=== PATIENT | female | born 2000 | race Caucasian/White ===

== ENCOUNTER 2020-08-31 20:51 | Emergency (ER) | payer OTHER ==
[~2020-08-31] VITALS: Ht 162.6 cm; Wt 54.2 kg
[2020-08-31] MEDS ORDERED: MULTTAB20 PO (21:09)
[2020-08-31 21:37] LABS: BASO # 0.1 10^3/uL (0.0-0.2); BASO % 0.7 % (0.0-1.0); EOS # 0.1 10^3/uL (0.0-0.5); EOS % 1.7 % (0.0-3.0); HEMATOCRIT 37.2 % (36.0-47.0); HEMOGLOBIN 12.6 g/dl (12.0-15.5); LYMPH # 2.5 10^3/uL (1.5-5.0); LYMPH % 35.7 % (24.0-44.0); MEAN CORPUSCULAR HEMOGLOBIN 29.4 pg (27.0-33.0); MEAN CORPUSCULAR HGB CONC 33.9 g/dl (32.0-36.5); MEAN CORPUSCULAR VOLUME 86.7 fl (80.0-96.0); MONO # 0.6 10^3/uL (0.0-0.8); MONO % 9.3 % (2.0-8.0); NEUTROPHILS # 3.6 10^3/uL (1.5-8.5); NEUTROPHILS % 52.3 % (36.0-66.0); PLATELET COUNT, AUTOMATED 145 10^3/uL (150-450); RED BLOOD COUNT 4.29 10^6/uL (4.00-5.40); WHITE BLOOD COUNT 6.9 10^3/uL (4.0-10.0)
[2020-08-31 22:24] LABS: BLOOD UREA NITROGEN 7 MG/DL (7-18); CALCIUM LEVEL 8.7 MG/DL (8.5-10.1); CARBON DIOXIDE LEVEL 28 MEQ/L (21-32); CHLORIDE LEVEL 106 MEQ/L (98-107); CREATININE FOR GFR 0.54 MG/DL (0.55-1.30); GLUCOSE, FASTING 84 MG/DL (70-100); HCG, SERUM QUANTITATIVE 87364 MIU/ML; POTASSIUM SERUM 4.1 MEQ/L (3.5-5.1); SODIUM LEVEL 140 MEQ/L (136-145)
--- NOTE | 2020-09-01 01:37 | REPVR ---
PROCEDURE INFORMATION: Exam: US First Trimester, Transabdominal and US Duplex Artery and Vein, Ovaries, Complete Exam date and time: 09/01/2020 12:33 AM Age: 20 years old Clinical indication: Lmp or gestational age (in weeks): 07/20/20; Antepartum complications; Bleeding; ; Additional info: Vaginal bleeding TECHNIQUE: Imaging protocol: Real-time transabdominal obstetrical ultrasound of the maternal pelvis and a first trimester , less than 14 weeks 0 days, with image documentation. Real-time duplex ultrasound scan of the arterial and venous flow of the ovaries with B-mode, color Doppler flow and spectral waveform analysis, complete duplex. COMPARISON: No relevant prior studies available. FINDINGS: Gestation: Single viable intrauterine gestation. A yolk sac is present. Embryonic/ heart rate: heart rate is 142 bpm. Extra-embryonic membranes/Placenta: Unremarkable. No subchorionic bleed. Amniotic fluid: Amniotic fluid is normal for gestational age. BIOMETRY: Gestational age (AUA): Sonographically estimated gestational age is 7 weeks 3 days. Estimated due date (AUA): Estimated date of delivery is 04/17/2021. [place]-Rump length: [place]-rump length of the pole is 1.2 cm. MATERNAL: Uterus: Unremarkable. Cervix: Unremarkable. Right adnexa: Right ovary measures 2 x 2.8 x 1.3 cm. Normal waveforms. Left adnexa: Left ovary measures 3 x 2 x 2.1 cm. Normal waveforms. Intraperitoneal space: No intraperitoneal free fluid. IMPRESSION: Single viable intrauterine gestation 7 weeks 3 days. Electronically signed by: Sridhar Balderas On 09/01/2020 01:37:14 AM
[2020-09-01 01:52] VITALS: BP 121/67
[2020-09-01 02:30] LABS: GC DNA AMPLIFICATION NEGATIVE (NEGATIVE)
== END 2020-09-01 01:54 | disposition home or self-care (01) ==
LOC: M ED 20:51
DX: O34.61 Maternal care for abnormality of vagina, first trimester (principal); Z3A.01 Less than 8 weeks gestation of pregnancy

== ENCOUNTER 2020-10-20 10:22 | Emergency (ER) | payer OTHER ==
[~2020-10-20] VITALS: Ht 162.6 cm; Wt 53.7 kg
[~2020-10-20 10:22] MED LIST: MULTTAB20 PO
[2020-10-20] MEDS ORDERED: NS 1,000 ML IV ONE (11:15)
[2020-10-20] MEDS ORDERED: ONDANSETRON 4MG/2ML VIAL IV ONE (11:15)
[2020-10-20 11:52] LABS: BASO % 0.3 % (0.0-1.0); EOS % 0.1 % (0.0-3.0); HEMATOCRIT 37.3 % (36.0-47.0); HEMOGLOBIN 13.2 g/dl (12.0-15.5); LYMPH # 1.4 10^3/uL (1.5-5.0); LYMPH % 17.8 % (24.0-44.0); MEAN CORPUSCULAR HEMOGLOBIN 30.3 pg (27.0-33.0); MEAN CORPUSCULAR HGB CONC 35.4 g/dl (32.0-36.5); MEAN CORPUSCULAR VOLUME 85.6 fl (80.0-96.0); MONO # 0.4 10^3/uL (0.0-0.8); NEUTROPHILS # 5.9 10^3/uL (1.5-8.5); NEUTROPHILS % 76.3 % (36.0-66.0); PLATELET COUNT, AUTOMATED 161 10^3/uL (150-450); RED BLOOD COUNT 4.36 10^6/uL (4.00-5.40); WHITE BLOOD COUNT 7.8 10^3/uL (4.0-10.0)
[2020-10-20] MEDS ORDERED: FAMO20TA PO (11:55)
[2020-10-20] MEDS ORDERED: UNIS25TA3 PO (11:55)
[2020-10-20 12:34] LABS: ALBUMIN 3.7 GM/DL (3.2-5.2); BILIRUBIN,DIRECT 0.1 MG/DL (0.0-0.2); BILIRUBIN,TOTAL 0.4 MG/DL (0.2-1.0); TOTAL PROTEIN 7.1 GM/DL (6.4-8.2)
[2020-10-20 13:48] LABS: APPEARANCE, URINE CLEAR (CLEAR); BACTERIA, URINE AUTO 1+ (NEGATIVE); BILIRUBIN, URINE AUTO NEGATIVE (NEGATIVE); BLOOD, URINE BLOOD NEGATIVE (NEGATIVE); COLOR, URINE YELLOW (YELLOW); GLUCOSE, URINE (UA) AUTO NEGATIVE (NEGATIVE); KETONE, URINE AUTO 2+ mg/dL (NEGATIVE); LEUKOCYTE ESTERASE, URINE AUTO NEGATIVE (NEGATIVE); NITRITE, URINE AUTO NEGATIVE (NEGATIVE); PROTEIN, URINE AUTO NEGATIVE (NEGATIVE); RBC, URINE AUTO 1 /HPF (0-3); SQUAMOUS EPITHELIAL CELL UR AU 3 /HPF (0-6); UROBILINOGEN, URINE AUTO 0.2 mg/dL (0.0-2.0); WBC, URINE AUTO 0 /HPF (0-3)
[2020-10-20] MEDS ORDERED: ONDA4TAB6 PO (14:04)
[2020-10-20 14:30] VITALS: BP 113/60
== END 2020-10-20 14:32 | disposition home or self-care (01) ==
LOC: M ED 10:22
DX: O26.892 Other specified pregnancy related conditions, second trimester (principal); Z3A.14 14 weeks gestation of pregnancy
CPT/HCPCS: 76705; 80047; 80076; 81001; 83690; 85025; 87086; 96361; 96374; 99284; J2405

== ENCOUNTER 2021-01-30 16:35 | Outpatient (CLI) | payer OTHER ==
[~2021-01-30] VITALS: Ht 162.6 cm; Wt 65.0 kg
[~2021-01-30 16:35] MED LIST changes: +FAMO20TA PO; +ONDA4TAB6 PO; +UNIS25TA3 PO
[2021-01-30 16:48] VITALS: BP 139/90
[2021-01-30] MEDS ORDERED: TUMS750C5 PO (17:01)
[2021-01-30 17:03] VITALS: BP 138/92
[2021-01-30 17:04] VITALS: BP 125/69
[2021-01-30] MEDS ORDERED: HOME MED LIST COMPLETE! XX SCH (17:05)
== END 2021-01-30 17:35 | disposition home or self-care (01) ==
LOC: M LDO 16:35
PROVIDERS: ATTEND Obstetrics & Gynecology
DX: O47.02 False labor before 37 completed weeks of gestation, second trimester (principal); Z3A.29 29 weeks gestation of pregnancy
CPT/HCPCS: 59025; 76815; 82731; G0378; G0463

== ENCOUNTER 2021-04-17 08:09 | Outpatient (CLI) | payer OTHER ==
[~2021-04-17] VITALS: Ht 162.6 cm; Wt 73.4 kg
[~2021-04-17 08:09] MED LIST changes: +TUMS750C5 PO
[2021-04-17 08:30] VITALS: BP 133/81
== END 2021-04-17 09:48 | disposition home or self-care (01) ==
LOC: M LDO 08:09
PROVIDERS: ATTEND Obstetrics & Gynecology
DX: O48.0 Post-term pregnancy (principal); Z3A.40 40 weeks gestation of pregnancy; O98.513 Other viral diseases complicating pregnancy, third trimester; B07.0 Plantar wart; O99.113 Other diseases of the blood and blood-forming organs and certain disorders involving the immune mechanism complicating pregnancy, third trimester; D69.6 Thrombocytopenia, unspecified
CPT/HCPCS: 59025; G0378; G0463

== ENCOUNTER 2021-04-23 12:22 | Inpatient (IN) | payer OTHER ==
[~2021-04-23] VITALS: Ht 160 cm; Wt 73.5 kg
[2021-04-23] VITALS (9 sets, daily range): BP systolic 118–157; BP diastolic 69–89
[2021-04-23] MEDS ORDERED: HOME MED LIST COMPLETE! XX SCH (12:40)
[2021-04-23 13:24] LABS: HEMATOCRIT 37.7 % (36.0-47.0); HEMOGLOBIN 13.1 g/dl (12.0-15.5); MEAN CORPUSCULAR HEMOGLOBIN 30.7 pg (27.0-33.0); MEAN CORPUSCULAR HGB CONC 34.7 g/dl (32.0-36.5); MEAN CORPUSCULAR VOLUME 88.3 fl (80.0-96.0); PLATELET COUNT, AUTOMATED 103 10^3/uL (150-450); RED BLOOD COUNT 4.27 10^6/uL (4.00-5.40); WHITE BLOOD COUNT 8.3 10^3/uL (4.0-10.0)
[2021-04-23 14:37] LABS: ALT/SGPT 19 U/L (12-78); BILIRUBIN,TOTAL 0.1 MG/DL (0.2-1.0); CREATININE FOR GFR 0.44 MG/DL (0.55-1.30); LDH LACTATE DEHYDROGENASE 206 U/L (84-246); URIC ACID 3.4 MG/DL (2.6-6.0)
[2021-04-23] MEDS ORDERED: LACTATED RINGER'S 1000 ML IV STA (14:46)
[2021-04-23] MEDS ORDERED: LIDOCAINE 1% MDV 20ML VIAL INFIL PRN (14:50)
[2021-04-23] MEDS ORDERED: CARBOPROST TROMETHAMINE 250 MCG/ML AMP IM PRN (14:50)
[2021-04-23] MEDS ORDERED: OXYTOCIN DRIP 30 UNITS in IV 1 EA IV PRN ×6 (14:50)
[2021-04-23] MEDS ORDERED: METHYLERGONOVINE MALEATE 0.2 MG/ML VIAL (J2210) IM PRN (14:50)
[2021-04-23] MEDS ORDERED: LR 1,000 ML IV SCH (14:50)
[2021-04-23] MEDS ORDERED: OXYTOCIN INJ 10 UNITS/ML VIAL (J2590) IV PRN (14:50)
[2021-04-23] MEDS ORDERED: OXYTOCIN INJ 10 UNITS/ML VIAL (J2590) IM PRN (14:50)
[2021-04-23] MEDS ORDERED: OXYTOCIN DRIP 30 UNITS in IV 1 EA IV SCH (14:50)
[2021-04-23] MEDS: miSOPROStol 50MCG 1/2 TABLET PO PRN ×2 (15:06→19:08)
[2021-04-23] MEDS: LR 1,000 ML IV SCH (23:45)
[2021-04-24] VITALS (49 sets, daily range): BP systolic 116–159; BP diastolic 66–98
[2021-04-24] MEDS: miSOPROStol 50MCG 1/2 TABLET PO PRN ×3 (00:08→08:19)
[2021-04-24] MEDS ORDERED: ONDANSETRON 4MG/2ML VIAL IV PRN ×2 (05:15→13:20)
[2021-04-24] MEDS ORDERED: ONDANSETRON 4MG/2ML VIAL IV SCH (05:30)
[2021-04-24] MEDS ORDERED: PROMETHAZINE INJ 25 MG/ML VIAL (J2550) IV PRN (08:15)
[2021-04-24] MEDS ORDERED: BUTORPHANOL 2 MG/ML INJ (J0595) IV PRN (08:15)
[2021-04-24] MEDS: LR 1,000 ML IV SCH (11:33)
[2021-04-24] MEDS ORDERED: OXYTOCIN DRIP 30 UNITS in IV 1 EA IV SCH ×2 (12:55→20:30)
[2021-04-24] MEDS ORDERED: LR 1,000 ML IV SCH (12:55)
[2021-04-24] MEDS ORDERED: FENTANYL 2MCG/ML ROPIVACAINE 0.2% IN 0.9% NACL 100ML IVBAG As Ordered ONE (13:00)
[2021-04-24] MEDS ORDERED: LACTATED RINGER'S 1000 ML IV PRN (13:20)
[2021-04-24] MEDS ORDERED: diphenhydrAMINE 50MG/ML VIAL (J1200) IV PRN (13:20)
[2021-04-24] MEDS ORDERED: EPIDURAL/PCA KEYS XX PRN (13:20)
[2021-04-24] MEDS ORDERED: EPIDURAL COMMENT XX SCH (13:20)
[2021-04-24] MEDS ORDERED: NALOXONE INJ 0.4MG/1ML VIAL (J2310 PER 1MG) IV PRN (13:20)
[2021-04-24] MEDS ORDERED: REFRIGERATOR IV KEYS XX PRN (13:20)
[2021-04-24] MEDS ORDERED: ePHEDrine SULFATE 25 MG/5 ML(5MG/ML) SYRINGE IV PRN (13:20)
[2021-04-24] MEDS: FENTANYL/ROPIVACAINE/NACL BAG 100 ML EPIDURAL SCH ×2 (13:46→23:20)
[2021-04-24 20:16] LABS: CORD GAS ABE A -4.1; CORD GAS ABE V -2.5; CORD GAS HCO3 A 20.7 MEQ/L; CORD GAS HCO3 V 22.9 MEQ/L; CORD GAS O2 SAT A 75.8 %; CORD GAS O2 SAT V 71.3 %; CORD GAS PCO2 A 37.3 mmHg; CORD GAS PCO2 V 42.1 mmHg; CORD GAS PH A 7.362 UNITS; CORD GAS PH V 7.354 UNITS; CORD GAS PO2 A 32.4 mmHg; CORD GAS PO2 V 28.8 mmHg; CORD GAS SBC A 20.6 MEQ/L; CORD GAS SBC V 21.7 MEQ/L; CORD GAS TCO2 A 21.8 MEQ/L; CORD GAS TCO2 V 24.2 MEQ/L
[2021-04-24] MEDS ORDERED: MEASLES,MUMPS,RUBELLA VACCINE INJ (MMR-II) (90707) SC SCH (20:30)
[2021-04-24] MEDS ORDERED: DOCUSATE SODIUM 100MG CAPSULE PO PRN (20:30)
[2021-04-24] MEDS ORDERED: PROMETHAZINE 25 MG TAB PO PRN (20:30)
[2021-04-24] MEDS ORDERED: ACETAMINOPHEN TAB 650MG DOSE (2X325MG) PO PRN (20:30)
[2021-04-24] MEDS ORDERED: RHOGAM 300 MCG (1500 IU) INJ (J2790) IM SCH (20:30)
[2021-04-24] MEDS ORDERED: IBUPROFEN 600MG TAB PO PRN (20:30)
[2021-04-24] MEDS ORDERED: ACETAMINOPHEN 500 MG TAB PO PRN (20:30)
[2021-04-25 05:49] VITALS: BP 142/79
[2021-04-25] MEDS: IBUPROFEN 800 MG TAB PO PRN ×2 (08:25→16:44)
[2021-04-25] MEDS: PRENATAL VITAMINS CHEWABLE TABLET PO SCH (08:25)
[2021-04-25] MEDS: DIBUCAINE 1% OINTMENT 30GM TOP PRN (12:23)
[2021-04-25 18:03] VITALS: BP 129/79
[2021-04-26 06:00] VITALS: BP 106/61
[2021-04-26] MEDS: DIBUCAINE 1% OINTMENT 30GM TOP PRN (10:22)
[2021-04-26] MEDS: PRENATAL VITAMINS CHEWABLE TABLET PO SCH (10:22)
== END 2021-04-26 12:40 | disposition home or self-care (01) | DRG 806 ==
LOC: M LDI 12:22 → M OBS 04-25 04:23
PROVIDERS: ADMIT Obstetrics & Gynecology; ATTEND Obstetrics & Gynecology
PROC: 3E0P7GC Introduction of Other Therapeutic Substance into Female Reproductive, Via Natural or Artificial Opening (ICD-10-PCS; 2021-04-23)
PROC: 10E0XZZ Delivery of Products of Conception, External Approach (ICD-10-PCS; principal; 2021-04-24)
PROC: 0HQ9XZZ Repair Perineum Skin, External Approach (ICD-10-PCS; 2021-04-24)
DX: O13.4 Gestational [pregnancy-induced] hypertension without significant proteinuria, complicating childbirth (principal); Z37.0 Single live birth; O99.12 Other diseases of the blood and blood-forming organs and certain disorders involving the immune mechanism complicating childbirth; Z3A.40 40 weeks gestation of pregnancy; O48.0 Post-term pregnancy; Z86.16 Personal history of COVID-19; D69.6 Thrombocytopenia, unspecified; O26.03 Excessive weight gain in pregnancy, third trimester; O77.0 Labor and delivery complicated by meconium in amniotic fluid; O32.6XX0 Maternal care for compound presentation, not applicable or unspecified; O70.0 First degree perineal laceration during delivery; O76 Abnormality in fetal heart rate and rhythm complicating labor and delivery